=== PATIENT | female | born 1975 | race Caucasian/White ===

== ENCOUNTER 2022-11-06 23:31 | Emergency (ER) | payer OTHER ==
[~2022-11-06] VITALS: Ht 170.1 cm; Wt 77.1 kg
[2022-11-07] MEDS ORDERED: ACULAR LS5 ML OP (00:57)
== END 2022-11-07 01:00 | disposition home or self-care (01) ==
LOC: ED 23:31
DX: S05.02XA Injury of conjunctiva and corneal abrasion without foreign body, left eye, initial encounter (principal); X58.XXXA Exposure to other specified factors, initial encounter; Y93.89 Activity, other specified; Y92.89 Other specified places as the place of occurrence of the external cause; Y99.8 Other external cause status